=== PATIENT | female | born 1965 | race African-American/Black ===

== ENCOUNTER 2019-12-13 19:14 | Observation (INO) ==
[2019-12-13] MEDS ORDERED: SODIUM CHLORIDE 0.9% 1,000 ML IV STA (20:13)
[2019-12-13] MEDS ORDERED: INSULIN REGULAR 100 UNIT/ML SUBCUT STA (20:13)
[2019-12-13 20:29] LABS: Basophils % 0.5 % (0.0-0.8); Eosinophils % 0.7 % (0.00-10.9); Hematocrit 43.9 VOL% (35.7-47.0); Hemoglobin 14.8 GM/DL (12.0-16.0); Immature Granulocytes % 0.2 %; Immature Granulocytes Absolute 0.01 #; Lymphocytes # 2.5 10*3/uL (1.4-4.0); Lymphocytes % 41.9 % (21.3-54.2); Mean Corpuscular HGB Conc 33.7 GM/DL (32-36); Mean Corpuscular Volume 87.6 FL (87-102); Mean Platelet Volume 10.5 FL (9.6-12.0); Monocytes % 9.7 % (1.7-12.7); Platelet Count 251 T/CUMM (130-400); Red Blood Count 5.01 MC/CUMM (3.8-5.5); Red Cell Distribution Width 12.5 % (9.3-17.3); White Blood Count 5.9 T/CUMM (4-12)
[2019-12-13 20:36] LABS: PT Patient Result 10.9 SECS (9.8-11.9)
[2019-12-13 20:38] LABS: Alanine Aminotransferase 23 U/L (13-56); Alkaline Phosphatase 113 U/L (45-117); Amylase 69 U/L (25-115); Aspartate Amino Transferase 31 U/L (0-37); Bilirubin,Total < 0.39 MG/DL (0.2-1.0); Blood Urea Nitrogen 7 MG/DL (7-18); Calcium 9.4 MG/DL (8.5-10.1); Estimated Glom Filtration Rate 75 ML/MIN; Glucose 484 MG/DL (74-106); Osmolality,Calculated 282.5 MOS/KG (273-304); Total Protein 8.6 G/DL (6.4-8.3); Troponin I < 0.015 NG/ML (0.00-0.045)
[2019-12-13 21:57] LABS: Bacteria,Urine Occasional /HPF (Few); Bilirubin,Urine Negative (Negative); Blood, Urine Negative (Negative); Glucose,Urine (UA) >=500 mg/dL (Negative); Ketones,Urine Negative (Negative); Nitrite,Urine Negative (Negative); Protein,Urine Negative; RBC,Urine 1 /HPF (0-4); Squamous Epithelial Cell,Urine Occasional /HPF (0-10); Urine Appearance CLEAR (Clear); Urine Color Colorless (Yellow); Urine Specific Gravity 1.011 (1.001-1.035); Urine Urobilinogen < 2.0 EU/DL (0.2-1.0); WBC,Urine 1 /HPF (0-6)
[2019-12-13] MEDS ORDERED: DEXTROSE 50% 25 GM/50 ML VIAL IV PRN (22:23)
[2019-12-13] MEDS ORDERED: ALUMINUM/MAGNES/SIMETH MAX STR 30 ML UDCUP PO PRN (22:23)
[2019-12-13] MEDS ORDERED: GLUCAGON 1 MG VIAL IM PRN (22:23)
[2019-12-13] MEDS ORDERED: NICOTINE 21 MG/24 HR PATCH TRANSDERM PRN (22:23)
[2019-12-13] MEDS ORDERED: ACETAMINOPHEN 325 MG TABLET PO PRN (22:23)
[2019-12-13] MEDS ORDERED: diphenhydrAMINE CAP 25 MG CAPSULE PO PRN (22:23)
[2019-12-13] MEDS ORDERED: ONDANSETRON 4 MG/2 ML VIAL IV PRN (22:23)
[2019-12-13 22:29] LABS: Barbiturates Screen,Urine Negative (Negative); Benzodiazepines Screen,Urine Negative (Negative); Cannabinoid Screen,Urine Negative (Negative); Opiate Screen,Urine Negative (Negative); Phencyclidine Screen,Urine Negative (Negative)
[2019-12-13] MEDS ORDERED: FLUCONAZOLE 200 MG TABLET PO ONE (23:26)
[2019-12-14] MEDS: SODIUM CHLORIDE 0.9% 1,000 ML IV SCH ×4 (00:31→23:00)
[2019-12-14] MEDS: INSULIN REGULAR 100 UNIT/ML SUBCUT SCH ×4 (00:32→17:43)
[2019-12-14] MEDS ORDERED: THIAMINE INJ 100 MG, FOLIC ACID INJ 1 MG, MULTIVITAMIN INJ 10 ML in SODIUM CHLORIDE 0.9... IV ONE (01:30)
[2019-12-14 02:09] LABS: Albumin 3.4 G/DL (3.4-5.0); Bilirubin,Total 0.6 MG/DL (0.2-1.0); Calcium 8.8 MG/DL (8.5-10.1); Osmolality,Calculated 285.5 MOS/KG (273-304); Total Protein 7.4 G/DL (6.4-8.3)
[2019-12-14] MEDS: PANTOPRAZOLE 40 MG TABLET PO SCH (09:28)
[2019-12-14] MEDS: guaiFENesin/DM ER 600-30 MG TABLET PO PRN (09:52)
[2019-12-14] MEDS: sitaGLIPtin 25 MG TABLET PO SCH (09:52)
[2019-12-14] MEDS: INSULIN GLARGINE 100 UNIT/ML SUBCUT SCH (09:52)
[2019-12-14] MEDS ORDERED: ENOXAPARIN 40 MG/0.4 ML SYRINGE SUBCUT SCH (16:00)
[2019-12-14 16:21] LABS: Alcohol Patient Result Positive (Negative)
[2019-12-14] MEDS ORDERED: ATORVASTATIN 20 MG TABLET PO SCH (21:00)
[2019-12-14] MEDS: METOPROLOL TARTRATE 25 MG TABLET PO SCH (21:50)
[2019-12-14] MEDS: chlordiazePOXIDE 10 MG CAPSULE PO SCH (21:50)
[2019-12-14] MEDS: lisinopriL 10 MG TABLET PO SCH (23:02)
[2019-12-15] MEDS: INSULIN REGULAR 100 UNIT/ML SUBCUT SCH ×3 (00:23→11:19)
[2019-12-15] MEDS: SODIUM CHLORIDE 0.9% 1,000 ML IV SCH (05:15)
[2019-12-15 06:05] LABS: Risk Ratio 3.05
[2019-12-15] MEDS ORDERED: CYANOCOBALAMIN 1000 MCG/1 ML VIAL IM ONE (07:34)
[2019-12-15] MEDS ORDERED: ERGOCALCIFEROL 50,000 UNIT CAPSULE PO SCH (08:00)
[2019-12-15] MEDS: METOPROLOL TARTRATE 25 MG TABLET PO SCH (08:29)
[2019-12-15] MEDS: guaiFENesin/DM ER 600-30 MG TABLET PO PRN (08:30)
[2019-12-15] MEDS: PANTOPRAZOLE 40 MG TABLET PO SCH (08:30)
[2019-12-15] MEDS: INSULIN GLARGINE 100 UNIT/ML SUBCUT SCH (08:30)
[2019-12-15] MEDS: chlordiazePOXIDE 10 MG CAPSULE PO SCH (08:30)
[2019-12-15] MEDS: sitaGLIPtin 25 MG TABLET PO SCH (08:31)
[2019-12-15] MEDS: lisinopriL 10 MG TABLET PO SCH (08:50)
[2019-12-15 11:15] VITALS: BP 148/88
== END 2019-12-15 13:22 | disposition home or self-care (01) ==
LOC: EDBD → EDUNIT# → N.ED 19:14 → N.EDINP 19:14 → N.3E 23:59
PROVIDERS: ADMIT Internal Medicine; ATTEND Internal Medicine